=== PATIENT | male | born 1935 | race Caucasian/White ===

== ENCOUNTER 2017-08-22 17:48 | Emergency (ER) | payer MEDICARE, SELFPAY ==
[2017-08-22 17:49] VITALS: BP 167/85; PULSE 62; RESP 17; TEMP 37.3; O2SAT 96; BMI 29.2
--- NOTE | 2017-08-22 18:35 | ED.VISSUMM ---
- ER Visit Summary Date of Service: 08/22/17 Chief Complaint: [] Laceration to the pad of the left thumb occurred with knife today History of Present Illness: The patient is a 81 M [] using knife to eat food inadvertently suffered laceration to the pad of the left thumb no other complaints tetanus status up-to-date Physical Examination: [] Exams unremarkable the left thumb is a 1 cm linear lacerations well approximated to the pad of the left thumb the nail is uninvolved and normal IP joint function MCP joint function wrist hand functions normal discussed no bleeding Test Results: [] Suturing versus Steri-Strips the patient preferred Steri-Strips area was sterilely cleansed and then Steri-Strips applied with no difficulty aluminum thumb splint by wound care instructions given follow-up with his doctor the next few days Emergency Department Course and Treatment: [] Treatment Plan: [] Disposition: [] Stable home Impression: [] one Centimeter left thumb laceration This note was generated with [employer] dictation software. It may contain incorrect words, spelling, and punctuation that were not noted in review of the chart prior to signing ED Disposition - Plan for ED Patient: Chief Complaint: Laceration Referrals: Ernie Shaikh MD [Primary Care Provider] -
--- NOTE | 2017-08-22 18:36 | ED.DEP ---
ED Disposition - Plan for ED Patient: Chief Complaint: Laceration Instructions: ED Laceration All, ED Laceration Hand Referrals: Ernie Shaikh MD [Primary Care Provider] -
== END 2017-08-22 18:59 | disposition home or self-care (01) ==
LOC: ED 18:55
PROVIDERS: Emergency Provider Emergency Medicine; Family Provider Internal Medicine; PCP Internal Medicine
DX: S61.012A Laceration without foreign body of left thumb without damage to nail, initial encounter (principal); Z79.82 Long term (current) use of aspirin; Z79.899 Other long term (current) drug therapy; W26.0XXA Contact with knife, initial encounter; Y93.G1 Activity, food preparation and clean up; Y92.89 Other specified places as the place of occurrence of the external cause; Y99.8 Other external cause status
CPT/HCPCS: 99283

== ENCOUNTER 2020-04-19 12:54 | Outpatient (RCR) | payer MEDICARE, SELFPAY ==
[2019-09-26 13:29] VITALS: BMI 29.8
== END 2020-04-19 23:59 ==
LOC: IMMUN 12:54
PROVIDERS: PCP Internal Medicine; Visit Provider Family Medicine
DX: Z23 Encounter for immunization (principal)
CPT/HCPCS: 0011A; 0012A; 91301

== ENCOUNTER 2021-03-26 06:26 | Outpatient (CLI) | payer MEDICARE, SELFPAY ==
--- NOTE | 2021-03-26 06:28 | CDU_ITS ---
Reason For Study: Left bruit Rt. Velocities/BP Lt. Velocities/BP Prox CCA 69.5/10.8 cm/sec. Prox CCA 86/16.8 cm/sec. Mid CCA 64.3/13.4 cm/sec. Mid CCA 70.6/19 cm/sec. Dist CCA 69.5/14.7 cm/sec. Dist CCA 56.3/11.3 cm/sec. Prox ICA 65.6/17.3 cm/sec. Prox ICA 48.7/11.3 cm/sec. Mid ICA 47.3/12.1 cm/sec. Mid ICA 57.4/15.7 cm/sec. Dist ICA 48.7/16.8 cm/sec. Dist ICA 48.7/19 cm/sec. Rt. ICA/CCA = 0.94. Lt. ICA/CCA = 0.81. Prox ECA 79.9/9.5 cm/sec. Prox ECA 67.3/8 cm/sec. Rt. Vert. 44.3/12.4 cm/sec. Lt. Vert. 42.1/14.6 cm/sec. Right Extracranial There is heterogeneous, smooth atherosclerotic plaque noted in the right common carotid artery. There is heterogeneous, irregular atherosclerotic plaque noted in the right internal carotid artery. There is intimal thickening but no significant atherosclerotic plaque noted in the right external carotid artery. Antegrade flow is noted in the right vertebral artery. Left Extracranial There is heterogeneous, smooth atherosclerotic plaque noted in the left common carotid artery. There is heterogeneous, irregular atherosclerotic plaque noted in the left internal carotid artery. There is intimal thickening but no significant atherosclerotic plaque noted in the left external carotid artery. Antegrade flow is noted in the left vertebral artery. Procedure Carotid Duplex 99705. This is a Carotid Duplex examination using B-mode, color flow and specral Doppler. Exam performed in department. VL/Carotid Duplex Ultrasound Interpretation Summary Irregular calcific plaque at the proximal right internal carotid artery with le ss than 50% stenosis. Less than 50% stenosis right external carotid artery Minimal irregular plaque at the proximal left internal carotid artery with less than 50% stenosis Less than 50% stenosis left external carotid artery Patent and antegrade vertebral arteries bilaterally Ordering Physician: Heidi Fox Referring Physician: Ernie Shaikh M.D. Performed By: Marley Cornejo RVT
--- NOTE | 2021-03-26 13:03 | STRESSREP ---
Stress Test Report Date: 03-26-2021 Procedure: Pharmacologic stress nuclear imaging study Indications: Chest pain; CAD; PCI Consent: Per the patient Procedure: The patient underwent pharmacologic (Regadenoson 0.4mg ) evaluation with a peak heart rate of 77 beats per minute (57%predicted maximal heart rate) and a peak blood pressure of 130/84 mmHg. The baseline ECG demonstrated normal sinus rhythm. The peak pharmacologic ECG demonstrated no obvious ECG changes. There was an isolated PVC during infusion. There was no complaint of chest discomfort during pharmacologic infusion or recovery. The examination was discontinued secondary to completion of protocol. Impression: 1. Pharmacologic (Regadenoson) evaluation 2. Peak pharmacologic ECG with no obvious ECG changes. 3. There was an isolated PVC during infusion. 4. Nuclear images pending Myocardial perfusion imaging study: Technique: The patient was injected with 12.0 millicuries of technetium 99m Cardiolite and subsequently rest SPECT Cardiolite nuclear imaging was obtained in the horizontal long, vertical long, and short axis views. The patient underwent pharmacologic (Regadenoson) evaluation with a peak heart rate of 77 beats per minute (57% percent predicted maximal heart rate) and a peak blood pressure of 130/84 mmHg. The patient was injected with 36.0 millicuries of technetium 99m Cardiolite and subsequently stress SPECT Cardiolite nuclear imaging was obtained in the horizontal long, vertical long, and short axis views. A gated Cardiolite study at peak stress was obtained. Interpretation: Rest and stress SPECT Cardiolite nuclear imaging status post realignment, normalization, and attenuation correction demonstrate relative uniform tracer uptake and myocardial perfusion appearing within normal limits. There is end systolic thickening and brightening. The gated Cardiolite study demonstrates myocardial thickening and inward wall motion. The reported LVEF is 66%. Impression: 1. Rest and stress SPECT Cardiolite nuclear imaging demonstrate relative uniform tracer uptake and myocardial perfusion appearing within normal limits. 2. The gated Cardiolite study reports an LVEF of 66%. This note was generated with [employer] incation software. It may contain incorrect words, spelling, and punctuation that were not noted in checking the note before signing.
== END 2021-03-26 23:59 | disposition short-term general hospital (02) ==
PROVIDERS: PCP Internal Medicine; Referring Provider Physician Assistant Medical; Visit Provider Physician Assistant Medical
DX: R09.89 Other specified symptoms and signs involving the circulatory and respiratory systems (principal); R07.9 Chest pain, unspecified
CPT/HCPCS: 78452; 93017; 93880; A9500; A4216; J2785

== ENCOUNTER → 2022-02-14 | Outpatient (CLI) | payer MEDICARE, SELFPAY ==
--- NOTE | 2022-02-14 11:09 | RAD_ITS ---
STUDY: X-RAY - LEFT KNEE REASON FOR EXAM: Male, 86 years old. Pain. TECHNIQUE: 4 view(s) of the knee. COMPARISON: None. FINDINGS: Marked osteopenia. Moderate arthrosis of the medial compartment with osteophytes. Mild arthrosis of the lateral compartment with small osteophytes. Moderate arthrosis of the patellofemoral compartment with osteophyte formation. Marked vascular calcification. RAD/Knee 4 or More Views IMPRESSION: Osteopenia with tricompartmental arthrosis, most marked in the medial and patellofemoral compartments. No acute abnormality, chondrocalcinosis or erosive changes. Electronically Signed: Aric Hernandez, at 11:56 EST ,
--- NOTE | 2022-02-14 11:10 | RAD_ITS ---
STUDY: X-RAY - PELVIS AND LEFT HIP REASON FOR EXAM: Male, 86 years old. Pain. TECHNIQUE: 3 views of the pelvis and hip. COMPARISON: None. FINDINGS: There is a non-specific bowel gas pattern. Vascular calcifications. Marked osteopenia. Moderate lower lumbosacral spondylosis. Marked arthrosis of the sacroiliac joints. Mild arthrosis of the symphysis pubis. Right total hip arthroplasty with the distal aspect of the femoral component is not imaged. Severe arthrosis of the left hip with complete loss of articular cartilage, subchondral cyst formation, subchondral sclerosis and osteophyte formation. RAD/HIP, UNI W/ Pelvis 2-3 Views IMPRESSION: Osteopenia with moderate to marked lower lumbar spondylosis and severe arthrosis of the left hip. No acute abnormality. Electronically Signed: Aric Hernandez, at 11:55 EST ,
== END | disposition home or self-care (01) ==
LOC: MTRAD 11:08
PROVIDERS: PCP Internal Medicine; Referring Provider Anesthesiology Pain Medicine; Visit Provider Anesthesiology Pain Medicine
DX: M25.551 Pain in right hip (principal); M25.552 Pain in left hip; M25.561 Pain in right knee; M25.562 Pain in left knee
CPT/HCPCS: 73502; 73564

== ENCOUNTER 2023-10-27 21:15 | Emergency (ER) | payer MEDICARE, SELFPAY ==
[2023-10-27] VITALS (7 sets, daily range): BP systolic 119–142; BP diastolic 57–87; PULSE 66–78; RESP 15–21; TEMP 36.4; O2SAT 95–98
--- NOTE | 2023-10-27 22:05 | CT_ITS ---
ACR Level 3 findings have been noted. An addendum which confirms receipt of the report will follow. EXAM: CT ANGIOGRAPHY ABDOMEN AND PELVIS WITHOUT AND WITH INTRAVENOUS CONTRAST CLINICAL INDICATION: multiple bloody bowel movments TECHNIQUE: Helically acquired angiography images were obtained of the abdomen and pelvis without and with intravenous contrast. This CT exam was performed using one or more of the following dose reduction techniques: automated exposure control, adjustment of the mA and/or kV according to patient size, and/or use of iterative reconstruction technique. MIP reconstructed images were created and reviewed. CONTRAST: IV 100mL Isovue-370 RADIATION DOSE: CTDIvol = 27.09 mGy, DLP = 843.29 mGy-cm COMPARISON: No relevant prior studies available. FINDINGS: VASCULATURE: AORTA: Moderate atherosclerotic changes of the abdominal aorta without dissection or dilation. CELIAC TRUNK AND MESENTERIC ARTERIES: No acute findings. No occlusion or significant stenosis. No dissection. RENAL ARTERIES: No acute findings. No occlusion or significant stenosis. No dissection. ILIAC ARTERIES: No acute findings. No occlusion or significant stenosis. No dissection. LOWER THORAX: Unremarkable. Lung bases are clear. No cardiomegaly. No significant pericardial effusion. ABDOMEN: LIVER: Unremarkable. Homogeneous. No focal mass. GALLBLADDER AND BILE DUCTS: Unremarkable. No calcified gallstones. No gallbladder distention or wall edema. No intra- or extrahepatic biliary ductal dilation. PANCREAS: Unremarkable. No focal cystic or solid mass. SPLEEN: Unremarkable. Normal size without focal cystic or solid mass. ADRENALS: Unremarkable. No nodules. KIDNEYS AND URETERS: Small simple right renal cyst. No follow-up imaging is recommended per consensus recommendations based on imaging criteria. Normal renal size and position. No hydronephrosis. STOMACH AND BOWEL: Small amount of hyperdensity within a diverticulum in the proximal sigmoid colon. Best appreciated on series 2 images 73 through 84. Moderate amount of stool in the colon. 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 No stomach or bowel distention. PELVIS: APPENDIX: The appendix is normal. BLADDER: Unremarkable. REPRODUCTIVE: Unremarkable as visualized. No mass. ABDOMEN and PELVIS: INTRAPERITONEAL SPACE: Unremarkable. No ascites or other fluid collection. No free air. BONES/JOINTS: Diffuse degenerative changes of the spine. Right hip arthroplasty. Chronic severe degenerative changes of the left hip. Degenerative changes of the spine. No suspicious lytic or blastic abnormality. SOFT TISSUES: Unremarkable. No discrete abdominal or pelvic wall hernia. LYMPH NODES: Unremarkable. No enlarged lymph nodes. CT/CTA Abd/Pelvis W/WO Contrast IMPRESSION: 1. Small amount of hyperdensity within a diverticulum in the proximal sigmoid colon. This likely indicates an actively bleeding diverticulum. 2. Moderate amount of stool in the colon. 3. 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 Electronically Signed: Dio Cummings MD at 23:40 EDT ,
[2023-10-27] MEDS: 0.9% Normal Saline (1000mL) 1,000 ML 999 ML IV (22:14)
[2023-10-27 22:21] LABS: Absolute Lymphocyte Count 1.55 X10^3/uL (0.83-4.51); Absolute Neutrophil Count 5.7 X10^3/uL (2.0-7.7); Basophil# 0.06 X10^3/uL; Basophil% 0.7 % (0-1); Eosinophil# 0.35 X10^3/uL; Eosinophils% 4.1 % (0-5); Hematocrit 37.5 % (40-54); Hemoglobin 11.5 g/dL (13.0-16.5); Lymphocyte # 1.55 X10^3/ul (0.83-4.51); Lymphocyte % 18.1 % (19-41); Mean Corp Hgb Conc 30.7 g/dL (32-36); Mean Platelet Vol. 10.2 fl (6.2-12.0); Monocyte# 0.82 X10^3/uL; Monocyte% 9.6 % (0-10); NRBC Flagged by Analyzer 0 % (0-5); Neutrophil # 5.72 X10^3/uL (2.7-7.7); Platelet Count 320 K/mm3 (150-450); RBC Distribution Width CV 15.1 % (11.6-14.6); RBC Distribution Width SD 48.4 fl (35.1-43.9); Red Blood Count 4.26 M/mm3 (4.6-6.2); White Blood Count 8.5 K/mm3 (4.4-11.0)
[2023-10-27 22:38] LABS: AST(SGOT) 24 U/L (15-37); Alanine Aminotransfer ALT/SGPT 25 U/L (16-61); Albumin, Serum 3.3 g/dL (3.2-5.0); Alkaline Phosphatase 77 U/L (45-117); Anion Gap 5 (5-15); BUN 26 mg/dL (7-18); BUN/Creat Ratio 28.8 RATIO (10-20); Calcium,Total 9.2 mg/dL (8.5-10.1); Chloride 110 mmol/L (98-107); EST Glomerular Filtration Rate 84 mL/min (>60); Est Glom Filt Rate - Afr Amer 102 mL/min (>60); Globulin 3.2 g/dL (2.2-4.2); Glucose 141 mg/dL (74-106); Lipase 26 U/L (13-75); Potassium 3.7 mmol/L (3.5-5.1); Protein, Total 6.5 g/dL (6.4-8.2); Sodium Level 143 mmol/L (136-145)
[2023-10-27 22:58] LABS: International Normalized Ratio 1.1
[2023-10-27 22:59] LABS: Partial Thromboplast Time 30.3 Seconds (24.1-36.2)
[2023-10-27 23:22] LABS: Bacteria 0 SEEN /hpf (None Seen); Mucous, Urine 0 SEEN /hpf (<or=2+); Red Blood Cells-Urine 0 SEEN /hpf (0-5); Squamous Epithelial Cells - UA 0 SEEN /hpf (0-5); White Blood Cells 0 SEEN /hpf (0-5)
[2023-10-27 23:23] LABS: Color, Urine Yellow (Yellow); Glucose, Dipstick Normal (Normal); Ketone-Dipstick Negative (Negative); Leukocyte Esterase-Dipstick Negative /ul (Negative); Nitrite-Dipstick Negative (Negative); Occult Blood-Urine Negative /ul (Negative); Protein-Dipstick Negative (Negative); Specific Gravity, Urine 1.005 (1.002-1.030); Urine Bilirubin Dipstick Negative (Negative); Urine Clarity Clear (Clear); Urine Urobilinogen Normal (Normal)
[2023-10-28] VITALS (25 sets, daily range): BP systolic 95–156; BP diastolic 59–83; PULSE 50–73; RESP 11–26; TEMP 37.2; O2SAT 91–97
--- NOTE | 2023-10-28 00:17 | EDS_ITS ---
HPI History of Present Illness Chief Complaint: GI Bleed Narrative Narrative: Patient is a 87-year-old male with a past medical history of BPH, GERD, hypertension, osteoarthritis who presents to the emergency department with chief complaint of bright red blood diarrhea since approximately 5 PM this evening. He states that earlier this evening he had an urge to use the restroom and notes that when he defecated he had a significant mount of bright red blood. He states that this happened a few more times until about 5 this evening prompting him to come here for the evaluation management. Patient denies any blood thinning medications. He states that nothing like this is ever happened in the past. Patient denies any abdominal pain. [facility] Medical History Cardiac murmur Presence of stent in coronary artery (~01/13/14) BPH (benign prostatic hyperplasia) GERD (gastroesophageal reflux disease) Pure hypercholesterolemia Atherosclerotic heart disease of [place] coronary artery without angina pectoris Essential hypertension Chest pain Home Medications ?Medication ?Instructions ?Recorded ?Last Taken ?Type aspirin 81 mg tablet,delayed 81 mg PO BID health maintenance 01/08/17 01/08/17 History release atorvastatin 40 mg tablet 40 mg PO QHS cholesterol 01/08/17 01/07/17 History calcium carbonate 600 mg-vitamin 1 ea PO BID supplement 01/08/17 01/08/17 History D3 20 mcg (800 unit) tablet carvedilol 25 mg tablet 25 mg PO BID heart/blood pressure 01/08/17 01/08/17 History finasteride 5 mg tablet 5 mg PO QHS prostate 01/08/17 01/07/17 History multivitamin 1 ea PO DAILY supplement 01/08/17 01/08/17 History terazosin 10 mg capsule 10 mg PO QHS 03/22/19 Unknown History amlodipine 5 mg-benazepril 20 mg 2 cap PO DAILY blood pressure 03/24/19 Unknown History capsule triamcinolone acetonide 55 mcg 2 spray intranasal DAILY PRN 09/26/19 Unknown History nasal spray aerosol (Children's Seasonal Allergies Nasacort) meloxicam 15 mg tablet (Mobic) 15 mg PO DAILY 05/29/21 Unknown History esomeprazole magnesium 20 mg 20 mg PO DAILY acid reflux 12/06/21 Unknown History capsule,delayed release chlorthalidone 25 mg tablet 25 mg PO DAILY 06/02/22 Unknown History docusate calcium 1 cap PO QAM 09/23/23 Unknown History hydralazine 10 mg tablet 10 mg PO 4X/DAY 09/23/23 Unknown History nitroglycerin 0.4 mg sublingual 0.4 mg sublingual Q5-15M PRN chest 09/23/23 Unknown Rx tablet (Nitrostat) pain #25 tabs esomeprazole magnesium 20 mg 20 mg PO DAILY 10/27/23 Unknown History capsule,delayed release (Acid Bindery Cutter Operator (esomeprazole)) [id number] 1 tab PO DAILY 10/27/23 Unknown History tablet (A Thru Z High Potency tablet) Allergy/AdvReac Type Severity Reaction Status Date / Time peanut AdvReac cough Verified 10/27/23 21:17 Family History Father CAD (coronary artery disease) Mother CAD (coronary artery disease) Surgical History History of hernia repair History of hip replacement History of adenoidectomy Presence of coronary angioplasty implant and graft (~01/13/14) Social History Smoking Status: Never smoker alcohol intake: current details: occasional substance use type: does not use caffeine: Yes Type: coffee Number of servings: 2 ROS ROS ED ROS Narrative Constitutional: Denies any fevers, chills, headaches, lightheadedness, dizziness Eyes: Denies changes double vision blurred vision Cardiovascular: Denies chest pain or palpitations Respiratory: Denies coughing wheezing shortness of breath Abdomen: Denies abdominal pain nausea vomiting admits to bloody diarrhea as noted above : Denies any urinary symptoms Neurological: Denies numbness, weakness, tingling Musculoskeletal: States that he has osteoarthritis Skin: Denies any rashes lesions EXAM Physical Exam Narrative Exam Narrative: General: Patient lying in bed rest comfortably did not appear to be in acute distress Head: Atraumatic, normocephalic Eyes: PERRL bilaterally, EOMI bilaterally, no conjunctival injection noted Neck: Soft, supple, trach midline Cardiovascular: Regular rate and rhythm no murmurs gallops rubs noted Respiratory: Clear to auscultation bilaterally Abdomen: Soft, nondistended, nontender to palpation, bowel sounds present all 4 Rectal: Patient has bright red blood noted on exam as well as dark red Extremities: +5/5 strength noted in the bilateral upper and lower extremities, no pedal edema on exam Neurological: Patient following commands knew that he was at [facility] ER is 2023 Skin: Warm, dry, intact Const Vital Signs: 10/27/23 21:17 10/27/23 22:46 10/27/23 23:06 Temperature 97.5 F L Temperature Source Temporal Pulse Rate 66 66 78 Respiratory Rate 18 15 19 H Blood Pressure 119/57 L Blood Pressure Mean 77 Pulse Ox 96 97 97 Oxygen Delivery Method Room Air 10/27/23 23:15 10/27/23 23:16 10/27/23 23:30 Temperature Temperature Source Pulse Rate 75 74 68 Respiratory Rate 21 H 20 H 17 Blood Pressure 137/87 H 142/74 H Blood Pressure Mean 102 91 Pulse Ox 98 97 Oxygen Delivery Method Room Air Room Air 10/27/23 23:45 10/28/23 00:00 10/28/23 00:15 Temperature Temperature Source Pulse Rate 72 64 61 Respiratory Rate 20 H 18 14 Blood Pressure 142/74 H Blood Pressure Mean 96 Pulse Ox 95 96 97 Oxygen Delivery Method Room Air MDM MDM MDM Narrative Medical decision making narrative: Patient is a 87-year-old male who presented to the emergency department with chief complaint of multiple episodes of bloody diarrhea. Patient will have a workup performed here on the differential diagnosis includes but not limited to diverticulosis, hemorrhoid, peptic ulcer disease. Once workup is obtained and reviewed he will be reevaluated. Patient's CBC was largely unremarkable with no leukocytosis noted white blood count normal 8.5, hemoglobin is noted to be 11.5, platelet count normal at 320. Patient's INR normal at 1.1, PT normal at 14. Patient's sodium normal at 143, potassium normal 3.7, creatinine normal at 0.90. Patient's AST and ALT were 24 and 25 respectively. Patient lipase normal at 26, urinalysis did not reveal any evidence of infection. Patient CT angiography of the abdomen and pelvis showed a small amount of hyperdensity within a diverticulum in the proximal sigmoid colon likely indicating actively bleeding diverticulum. 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 Nurse notified myself that the patient has been up to the bedside commode and has had multiple bright red bloody bowel movements here in the emergency department Patient's case was signed out to oncoming provider to make ultimate disposition see their note for further details. Lab Data Labs: Laboratory Results - last 24 hr 10/27/23 10/27/23 10/27/23 21:35 22:22 23:17 WBC 8.5 RBC 4.26 L Hgb 11.5 L Hct 37.5 L MCV 88.0 MCH 27.0 MCHC 30.7 L RDW Std Deviation 48.4 H RDW Coeff of Regan 15.1 H Plt Count 320 MPV 10.2 Immature Gran % (Auto) 0.500 Neut % (Auto) 67.0 Lymph % (Auto) 18.1 L [place] % (Auto) 9.6 Eos % (Auto) 4.1 Baso % (Auto) 0.7 Absolute Neuts (auto) 5.7 Absolute Lymphs (auto) 1.55 Nucleated RBC % 0 PT 14.0 INR 1.1 APTT 30.3 Sodium 143 Potassium 3.7 Chloride 110 H Carbon Dioxide 28.0 Anion Gap 5 BUN 26 H Creatinine 0.90 Est GFR (MDRD) Af Amer 102 Est GFR (MDRD) Non-Af 84 BUN/Creatinine Ratio 28.8 H Glucose 141 H Calcium 9.2 Total Bilirubin 0.40 AST 24 ALT 25 Alkaline Phosphatase 77 Total Protein 6.5 Albumin 3.3 Globulin 3.2 Albumin/Globulin Ratio 1.0 Lipase 26 Urine Color Yellow Urine Clarity Clear Urine pH 7.0 Ur Specific [place] 1.005 Urine Protein Negative Urine Glucose (UA) Normal Urine Ketones Negative Urine Occult Blood Negative Urine Nitrite Negative Urine Bilirubin Negative Urine Urobilinogen Normal Ur Leukocyte Esterase Negative Urine RBC 0 SEEN Urine WBC 0 SEEN Ur Squamous Epith Cells 0 SEEN Urine Bacteria 0 SEEN Urine Mucus 0 SEEN Blood Type A POSITIVE Antibody Screen NEGATIVE Radiography Diagnostic Testing: Clinical Impression(s) from Imaging Studies Abdomen/Pelvis CTA 10/27/23 22:05 IMPRESSION: 1. Small amount of hyperdensity within a diverticulum in the proximal sigmoid colon. This likely indicates an actively bleeding diverticulum. 2. Moderate amount of stool in the colon. 3. 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 Electronically Signed: Dio Cummings MD at 23:40 EDT , ADDENDUM: 10/27/23 [id number] IMPRESSION: 1. Small amount of hyperdensity within a diverticulum in the proximal sigmoid colon. This likely indicates an actively bleeding diverticulum. 2. Moderate amount of stool in the colon. 3. 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 N.B. : Isai Dsouza DO, confirmed on 10/27/2023 23:48:42 (ET) that the healthcare facility has received the radiology report. Electronically Signed: Dio Cummings MD at 23:40 EDT , Discharge Plan Triage Chief Complaint: GI Bleed ED Provider: Isai Dsouza Dx/Rx/DC Orders Clinical Impression: Acute GI bleeding Prescriptions: No Action terazosin 10 mg capsule 10 mg PO QHS hydralazine 10 mg tablet 10 mg PO 4X/DAY triamcinolone acetonide [Children's Nasacort] 55 mcg aerosol,spray 2 spray INTRANASAL DAILY PRN (Reason: Seasonal Allergies) Rx Instructions: administer into each nostril meloxicam [Mobic] 15 mg tablet 15 mg PO DAILY chlorthalidone 25 mg tablet 25 mg PO DAILY docusate calcium 1 cap PO QAM nitroglycerin [Nitrostat] 0.4 mg tablet, sublingual 0.4 mg sublingual Q5-15M PRN (Reason: chest pain) Qty: 25 3RF Rx Instructions: do not exceed 3 doses per episode multivitamin 1 EACH tablet 1 ea PO DAILY Patient Comments: supplement atorvastatin 40 MG tablet 40 mg PO QHS Patient Comments: cholesterol carvedilol 25 MG tablet 25 mg PO BID Patient Comments: blood pressure aspirin 81 MG tablet 81 mg PO BID Patient Comments: heart health finasteride 5 MG tablet 5 mg PO QHS Patient Comments: prostate calcium carbonate-vitamin D3 1 EACH tablet 1 ea PO BID Patient Comments: supplement amlodipine-benazepril 5-20 mg capsule 2 cap PO DAILY Patient Comments: blood pressure esomeprazole magnesium 20 mg capsule,delayed release(DR/EC) 20 mg PO DAILY Patient Comments: acid reflux esomeprazole magnesium [Acid Bindery Cutter Operator (esomeprazole)] 20 mg capsule,delayed release(DR/EC) 20 mg PO DAILY A Thru Z High Potency Tablet 1 tab PO DAILY Primary Care Provider: Ernie Shaikh Referrals: Ernie Shaikh MD [Primary Care Provider] - Print Language: Luxembourgish
[2023-10-28] MEDS: Morphine 2 MG/ML Syringe IV (00:19)
[2023-10-28] MEDS: Ondansetron 4 MG/2 ML Vial IV (00:19)
--- NOTE | 2023-10-28 01:00 | ED.RN ---
Initiated transfer through [facility] transfer line. Pt requesting [facility] or [facility]. Waiting for call back.
--- NOTE | 2023-10-28 05:17 | ED.RN ---
0500: REPORT CALLED TO [facility] ICU NURSE INDU AT THIS TIME. NO FURTHER QUESTIONS BY THE RECEIVING NURSE. 0517: PER PATIENT AND FAMILY REQUEST I CALLED TO UPDATE DRAKE DURAN AT THIS TIME. HE WAS INFORMED OF PATIENT PROJECTED TRANSPORT TIME AND UNIT NUMBER AT THE RECEIVING FACILITY.
[2023-10-28 06:32] LABS: Hematocrit 27.3 % (40-54); Hemoglobin 8.3 g/dL (13.0-16.5)
== END 2023-10-28 06:45 | disposition short-term general hospital (02) ==
PROVIDERS: Emergency Medicine; Emergency Provider Emergency Medicine; PCP Internal Medicine; Visit Provider Emergency Medicine
DX: K57.31 Diverticulosis of large intestine without perforation or abscess with bleeding (principal); I10 Essential (primary) hypertension; E78.00 Pure hypercholesterolemia, unspecified; I25.10 Atherosclerotic heart disease of native coronary artery without angina pectoris; Z95.5 Presence of coronary angioplasty implant and graft; Z79.82 Long term (current) use of aspirin; Z79.899 Other long term (current) drug therapy
CPT/HCPCS: 74174; 80053; 81001; 82274; 83690; 85014; 85018; 85025; 85610; 85730; 86850; 86900; 86901; 96361; 96374; 96375; 99285; J7030; J7050; Q9967; A4216; J2405